=== PATIENT | male | born 1975 | race African-American/Black ===

== ENCOUNTER 2019-09-02 01:01 | Inpatient (IN) | payer MEDICARE, MEDICAID ==
[~2019-09-02] VITALS: Ht 175.3 cm; Wt 83.5 kg
[~2019-09-02 01:01] MED LIST: AMLO10TA80 PO; FURO80TA87; LABE300T3 PO; MINO2.5T19
[2019-09-02] MEDS ORDERED: LABETALOL HCL 20MG/4ML CARPUJECT IV ONE (02:00)
[2019-09-02 02:33] LABS: BASOPHILS % 0.9 % (0.0-2.0); HEMOGLOBIN. 10.4 g/dL (14.0-18.0); LYMPHOCYTES % 12.9 % (20.0-50.0); MEAN CORPUSCULAR HEMOGLOBIN 28.3 pg (28.0-32.0); MEAN CORPUSCULAR VOLUME 84.6 fL (80.0-94.0); MEAN PLATELET VOLUME 9.5 fl (7.4-10.4); MONOCYTES % 11.1 % (2.0-8.0); NEUTROPHILS % 72.1 % (40.0-76.0); PLATELET 215 x1000/uL (130-400); RED BLOOD CELL COUNT 3.66 mill/uL (4.7-6.1); RED CELL DISTRIBUTION WIDTH 15.1 % (11.6-14.6)
[2019-09-02 02:37] LABS: CHLORIDE 99 mEq/L (98-107)
[2019-09-02] MEDS ORDERED: HYDROCODONE/ACETAMINOPHEN 5/325MG TABLET PO PRN (04:30)
[2019-09-02] MEDS ORDERED: ONDANSETRON HCL 4MG/2ML INJ IV PRN (04:30)
[2019-09-02] MEDS ORDERED: HYDRALAZINE 20MG/ML VIAL IV ONE (04:30)
[2019-09-02] MEDS: ACETAMINOPHEN 325MG TABLET PO PRN ×2 (06:20→06:27)
[2019-09-02] MEDS: HYDRALAZINE 20MG/ML VIAL IV PRN ×2 (07:07→18:12)
[2019-09-02] MEDS ORDERED: LABETALOL HCL 300MG TABLET PO NR (09:30)
[2019-09-02] MEDS: AMLODIPINE 10MG TABLET PO SCH (09:32)
[2019-09-02] MEDS ORDERED: ENOXAPARIN 30MG/0.3ML SYR SUBCUT NR (16:45)
[2019-09-02] MEDS ORDERED: MINOXIDIL 2.5MG TABLET PO NR (16:45)
[2019-09-02 22:52] VITALS: BP 153/96
[2019-09-02] MEDS: LABETALOL HCL 300MG TABLET PO SCH (23:30)
[2019-09-02] MEDS ORDERED: REN800 PO (23:44)
[2019-09-02] MEDS ORDERED: HYDR-4134 MT (23:44)
[2019-09-02] MEDS ORDERED: LOSA100T32 PO (23:44)
[2019-09-02] MEDS ORDERED: CINA60 PO (23:44)
[2019-09-02] MEDS ORDERED: PRO1 PO (23:44)
[2019-09-02] MEDS ORDERED: ALLO100T MT (23:44)
[2019-09-03] MEDS: CLONIDINE 0.1MG TABLET PO PRN ×2 (02:37→08:55)
[2019-09-03 04:00] VITALS: BP 163/109
[2019-09-03] MEDS: HYDRALAZINE 20MG/ML VIAL IV PRN (05:21)
[2019-09-03 08:00] VITALS: BP 182/112
[2019-09-03] MEDS: AMLODIPINE 10MG TABLET PO SCH (08:54)
[2019-09-03] MEDS: LABETALOL HCL 300MG TABLET PO SCH ×2 (08:54→22:03)
[2019-09-03] MEDS: MINOXIDIL 2.5MG TABLET PO SCH (08:55)
[2019-09-03] MEDS: ENOXAPARIN 30MG/0.3ML SYR SUBCUT SCH (08:56)
[2019-09-03] MEDS ORDERED: ENOXAPARIN 40MG/0.4ML SYR SUBCUT SCH (09:00)
[2019-09-03 12:00] VITALS: BP 162/105
[2019-09-03] MEDS: LOSARTAN POTASSIUM 50 MG TABLET PO SCH (14:01)
[2019-09-03] MEDS: CLONIDINE 0.2MG TABLET PO SCH ×2 (14:01→23:09)
[2019-09-03 14:25] LABS: BASOPHILS % 1.3 % (0.0-2.0); HEMATOCRIT. 33.4 % (42.0-52.0); HEMOGLOBIN. 10.9 g/dL (14.0-18.0); LYMPHOCYTES % 16.1 % (20.0-50.0); MEAN CORPUSCULAR HEMOGLOBIN 27.9 pg (28.0-32.0); MEAN CORPUSCULAR VOLUME 85.2 fL (80.0-94.0); MEAN PLATELET VOLUME 9.8 fl (7.4-10.4); MONOCYTES % 11.2 % (2.0-8.0); NEUTROPHILS % 66.4 % (40.0-76.0); PLATELET 246 x1000/uL (130-400); RED BLOOD CELL COUNT 3.92 mill/uL (4.7-6.1)
[2019-09-03 16:00] VITALS: BP 136/85
[2019-09-03] MEDS: DILTIAZEM HCL 90MG TABLET PO SCH ×2 (18:06→23:09)
[2019-09-03 20:00] VITALS: BP 151/96
[2019-09-04] VITALS: BP_SYST 159; BP_DIAS 101; BP_DIAS 103
[2019-09-04] MEDS: DILTIAZEM HCL 90MG TABLET PO SCH (05:45)
[2019-09-04] MEDS: CLONIDINE 0.2MG TABLET PO SCH ×3 (05:46→21:08)
[2019-09-04 08:00] VITALS: BP 143/90
[2019-09-04 08:32] LABS: BASOPHILS % 2.4 % (0.0-2.0); EOSINOPHILS % 6.2 % (0.0-5.0); HEMOGLOBIN. 10.2 g/dL (14.0-18.0); LYMPHOCYTES % 20.6 % (20.0-50.0); MEAN CORPUSCULAR HEMOGLOBIN 28.1 pg (28.0-32.0); MEAN CORPUSCULAR VOLUME 85.3 fL (80.0-94.0); MEAN PLATELET VOLUME 9.3 fl (7.4-10.4); NEUTROPHILS % 56.8 % (40.0-76.0); PLATELET 231 x1000/uL (130-400); RED BLOOD CELL COUNT 3.63 mill/uL (4.7-6.1); RED CELL DISTRIBUTION WIDTH 15.4 % (11.6-14.6)
[2019-09-04] MEDS: LOSARTAN POTASSIUM 50 MG TABLET PO SCH (09:00)
[2019-09-04] MEDS: MINOXIDIL 2.5MG TABLET PO SCH (09:00)
[2019-09-04] MEDS: ENOXAPARIN 30MG/0.3ML SYR SUBCUT SCH (09:00)
[2019-09-04] MEDS: LABETALOL HCL 300MG TABLET PO SCH ×2 (09:00→21:09)
[2019-09-04] MEDS: DILTIAZEM HCL 300MG CAPSULE SR 24HR PO SCH (10:30)
[2019-09-04 12:00] VITALS: BP 138/91
[2019-09-04 16:00] VITALS: BP 145/92
[2019-09-04] MEDS: HYDRALAZINE 20MG/ML VIAL IV PRN (18:28)
[2019-09-04 20:00] VITALS: BP 156/103
[2019-09-05 04:00] VITALS: BP_SYST 169; BP_SYST 211; BP_DIAS 107; BP_DIAS 130
[2019-09-05] MEDS: HYDRALAZINE 20MG/ML VIAL IV PRN (05:20)
[2019-09-05] MEDS: CLONIDINE 0.2MG TABLET PO SCH (05:52)
[2019-09-05] MEDS ORDERED: DILT120T13 MT (06:10)
[2019-09-05] MEDS ORDERED: LOSA50TA41 PO (06:13)
[2019-09-05] MEDS ORDERED: MINO2.5T2 PO (06:14)
[2019-09-05] MEDS ORDERED: CLON0.2T PO (06:15)
[2019-09-05] MEDS ORDERED: DILT120T13 PO (06:23)
[2019-09-05 07:24] VITALS: BP 141/96
[2019-09-05] MEDS: ENOXAPARIN 30MG/0.3ML SYR SUBCUT SCH ×2 (07:34→07:41)
[2019-09-05] MEDS: DILTIAZEM HCL 300MG CAPSULE SR 24HR PO SCH (07:34)
[2019-09-05] MEDS: MINOXIDIL 2.5MG TABLET PO SCH (07:34)
[2019-09-05] MEDS: LABETALOL HCL 300MG TABLET PO SCH (07:34)
[2019-09-05] MEDS: LOSARTAN POTASSIUM 50 MG TABLET PO SCH (07:34)
[2019-09-05 09:34] VITALS: BP 141/96
== END 2019-09-05 10:25 | disposition home or self-care (01) | DRG 682 ==
LOC: ER 01:01 → 7WST 03:46 → EDBEDREQTM 03:51 → EDBEDREQ 03:51 → ENRESERV 20:46
PROVIDERS: ADMIT Internal Medicine Nephrology; ATTEND Internal Medicine Nephrology
PROC: 5A1D70Z Performance of Urinary Filtration, Intermittent, Less than 6 Hours Per Day (ICD-10-PCS; principal; 2019-09-02)
PROC: 5A1D70Z Performance of Urinary Filtration, Intermittent, Less than 6 Hours Per Day (ICD-10-PCS; 2019-09-02)
DX: I12.0 Hypertensive chronic kidney disease with stage 5 chronic kidney disease or end stage renal disease (principal); N18.6 End stage renal disease; F12.90 Cannabis use, unspecified, uncomplicated; I27.20 Pulmonary hypertension, unspecified; Z79.899 Other long term (current) drug therapy; Z91.14 Patient's other noncompliance with medication regimen; Z91.19 Patient's noncompliance with other medical treatment and regimen; Z99.2 Dependence on renal dialysis
CPT/HCPCS: 36415; 71045; 80048; 80053; 83880; 84484; 85025; 93005; 93306; 96372; 96374; 96375; 99285; J0360; J1650; J3490